=== PATIENT | female | born 1985 | race Two or more races ===

== ENCOUNTER 2021-05-21 04:17 | Emergency (ER) | payer SELFPAY ==
--- NOTE | 2021-05-21 04:43 | ED Physician Documentation ---
PD HPI HEENT - Stated complaint Stated Complaint: JAW WONT OPEN - Chief complaint Chief Complaint: Heent - History obtained from History obtained from: Patient - History of Present Illness Timing - details: Abrupt onset, Constant Location: Other (jaw) Similar symptoms before: No diagnosis (similar episodes in the past but resolved without medical attention) Recently seen: Not recently seen - Additional information Additional information: c/o sudden onset of jaw pain, left TMJ area, and inability to close her mouth four hours ago while engaged in oral sex. she provides HPI and limited ROS via writing with pen/paper Review of Systems Musculoskeletal: reports: Joint pain (left TMJ) PD PAST MEDICAL HISTORY - Past Medical History Past Medical History: No - Past Surgical History Past Surgical History: No - Present Medications Home Medications: Ambulatory Orders Medication Instructions Recorded Confirmed No Known Home Medications 05/21/21 05/21/21 - Allergies Allergies/Adverse Reactions: Allergies Allergy/AdvReac Type Severity Reaction Status Date / Time No Known Drug Allergies Allergy Verified 05/21/21 04:28 - Social History Does the pt smoke?: No Smoking Status: Never smoker Does the pt drink ETOH?: No Does the pt have substance abuse?: No - Immunizations Immunizations are current?: No PD ED PE NORMAL - Vitals Vital signs reviewed: Yes - General General: Alert and oriented X 3, Other (cannot close mouth) - Neck Neck: No bony TTP Results - Vitals Vitals: Oxygen O2 Source Room air Procedures - Reduction Body part reduced: Left, Other (TMJ) Fracture or dislocation: Dislocation Anesthesia: Other (2 mg versed) Reduction aftercare: Other (initial attempt to reduce TMJ using syringe method was unsuccessful. The left TMJ was then reduced after 2mg IV versed with extraoral technique (simultaneous anterior-directed traction on right angle of mandible with posterior-directed traction on left TMJ). patient able to open/close mouth easily) PD MEDICAL DECISION MAKING - ED course Complexity details: considered differential, d/w patient ED course: left TMJ dislocation with reduction achieved as above. observed briefly in ED after procedure, as versed was given. Departure - Departure Disposition: 01 Home, Self Care Clinical Impression: Dislocated mandible Condition: Good Instructions: ED Dislocation Mandible Discharge Date/Time: 05/21/21 06:05
[2021-05-21] MEDS ORDERED: MIDAZOLAM 2 MG/2 ML VIAL IVP STA (05:13)
[2021-05-21 05:52] VITALS: BP 116/91
== END 2021-05-21 06:05 | disposition home or self-care (01) ==
LOC: ED 04:17
DX: S03.02XA Dislocation of jaw, left side, initial encounter (principal); X58.XXXA Exposure to other specified factors, initial encounter; Y93.89 Activity, other specified
CPT/HCPCS: 21480

== ENCOUNTER 2023-07-24 10:15 | Outpatient (CLI) | payer BC ==
[2023-07-24 21:47] LABS: CHLAMYDIA TRACHOMATIS DNA NEGATIVE (NEGATIVE); NEISSERIA GONORRHOEAE DNA NEGATIVE (NEGATIVE)
[2023-07-25 00:15] LABS: BACTERIAL VAGINOSIS DNA POSITIVE (NEGATIVE); CANDIDA GLABRATA DNA NEGATIVE (NEGATIVE); CANDIDA GROUP DNA NEGATIVE (NEGATIVE); CANDIDA KRUSEI DNA NEGATIVE (NEGATIVE); TRICHOMONAS VAGINALIS DNA NEGATIVE (NEGATIVE)
== END 2023-07-24 10:30 | disposition home or self-care (01) ==
LOC: LAB.N 10:15
PROVIDERS: ATTEND Specialist
DX: N76.0 Acute vaginitis (principal)
CPT/HCPCS: 81514; 87491; 87591; 87661